=== PATIENT | female | born 1990 | race Caucasian/White ===

== ENCOUNTER 2018-03-20 15:26 | Emergency (ER) | payer MEDICAID ==
[~2018-03-20] VITALS: Ht 157.5 cm; Wt 63.0 kg
[2018-03-20 16:04] VITALS: Ht 157.5 cm; Wt 63.0 kg
[2018-03-20 17:35] VITALS: BP 120/74
== END 2018-03-20 17:35 | disposition home or self-care (01) ==
LOC: ED 15:26
DX: J02.9 Acute pharyngitis, unspecified (principal); H92.01 Otalgia, right ear
CPT/HCPCS: J0561; J1100